=== PATIENT | male | born 2000 | race Caucasian/White ===

== ENCOUNTER 2022-02-18 23:24 | Emergency (ER) | payer OTHER ==
[~2022-02-18] VITALS: Ht 190.5 cm; Wt 68.2 kg
[~2022-02-18 23:24] MED LIST: ZOFRAN ODT4 MG PO
[2022-02-18 23:29] VITALS: BP 122/74; PULSE 58; TEMP 97.7
== END 2022-02-19 00:35 | disposition home or self-care (01) ==
LOC: COL.ER 23:24
DX: S02.5XXA Fracture of tooth (traumatic), initial encounter for closed fracture (principal); K05.30 Chronic periodontitis, unspecified; K02.9 Dental caries, unspecified; Z28.310 Unvaccinated for COVID-19; X58.XXXA Exposure to other specified factors, initial encounter